=== PATIENT | female | born 1985 | race Caucasian/White ===

== ENCOUNTER 2017-10-04 22:24 | Emergency (ER) | payer OTHER ==
[2017-10-04 22:25] VITALS: O2SAT 100
[2017-10-04] MEDS ORDERED: ONDANSETRON HCL 4 MG/2 ML SOL IV ONE (23:06)
[2017-10-04] MEDS ORDERED: FENTANYL 100MCG/2ML SOL IV ONE (23:07)
[2017-10-04] MEDS ORDERED: PANTOPRAZOLE SODIUM 40 MG/10 ML PDS IV ONE (23:08)
[2017-10-04] MEDS ORDERED: SODIUM CHLORIDE 0.9% 1000 ML SOL IV ONE (23:15)
[2017-10-04] MEDS: SODIUM CHLORIDE 0.9% FLUSH 10 ML SOL IV PRN ×2 (23:30→23:55)
[2017-10-04 23:33] LABS: BASOPHILS % (AUTO) 1 % (0-3); EOSINOPHILS % (AUTO) 8 % (0-9); HEMATOCRIT 36 % (35-47); HEMOGLOBIN 12.3 gm/dl (12.0-15.5); LYMPHOCYTES % (AUTO) 34.7 % (10-50); MEAN CORPUSCULAR HEMOGLOBIN 30.8 pg (27.0-32.0); MEAN CORPUSCULAR HGB CONC 34.6 gm/dl (32.0-36.0); MEAN CORPUSCULAR VOLUME 89 fL (81-99); MONOCYTES % (AUTO) 7.4 % (0-12); NEUTROPHILS % (AUTO) 48.4 % (37-80)
[2017-10-04] MEDS ORDERED: ONDANSETRON HCL 4 MG/2 ML SOL ONE (23:44)
[2017-10-04] MEDS ORDERED: PANTOPRAZOLE SODIUM 40 MG/10 ML PDS ONE (23:44)
[2017-10-04] MEDS ORDERED: FENTANYL 100MCG/2ML SOL ONE (23:44)
[2017-10-04 23:54] LABS: BILIRUBIN,TOTAL 0.4 mg/dl (0.2-1.0); CREATININE 0.63 mg/dl (0.60-1.00); TOTAL PROTEIN 5.9 gm/dl (6.4-8.2)
[2017-10-05 00:04] LABS: POTASSIUM 2.8 mMol/L (3.5-5.1)
[2017-10-05 00:08] LABS: APPEARANCE,URINE Slightly Cloudy; BILIRUBIN,URINE NEGATIVE (NEGATIVE); COLOR,URINE Yellow; GLUCOSE, URINE (UA) NEGATIVE (NEGATIVE); KETONES,URINE NEGATIVE (NEGATIVE); LEUKOCYTE ESTERASE ,URINE NEGATIVE (NEGATIVE); NITRATE,URINE NEGATIVE (NEGATIVE); OCCULT BLOOD,URINE NEGATIVE (NEG-TRACE); PH,URINE 6.5; UROBILINOGEN,URINE 0.2 (0.2-1.0 EU)
[2017-10-05 00:20] LABS: EPITHELIAL CELLS 0-2 (SQUAMOUS); RBC,URINE 0-3 (0-3AV/HPF); WBC,URINE 0-2 (0-5AV/HPF)
[2017-10-05 00:21] LABS: BACTERIA 2+ (< 1+); CRYSTALS 0-4 CA OXALATE (0-3 AVE/HPF)
[2017-10-05] MEDS ORDERED: POTASSIUM CHLORIDE 10 MEQ TER PO ONE (00:24)
[2017-10-05] MEDS ORDERED: POTASSIUM CHLORIDE 10 MEQ TER ONE (00:24)
[2017-10-05 00:44] VITALS: BP 108/80; PULSE 73; RESP 12; TEMP 97
== END 2017-10-05 01:33 | disposition short-term general hospital (02) ==
LOC: ED 22:24
DX: K35.80 Unspecified acute appendicitis (principal)
CPT/HCPCS: 36415; 74177; 80053; 81001; 84703; 85025; 87088; 99285; J2405; J3010; Q9967; A9270-GY

== ENCOUNTER 2017-10-09 23:20 | Emergency (ER) | payer OTHER ==
[2017-10-09 23:20] VITALS: O2SAT 100
[2017-10-09] MEDS ORDERED: ONDANSETRON HCL 4 MG/2 ML 4 MG in SODIUM CHLORIDE 0.9% 100 ML 100 ML IV ONE (23:39)
[2017-10-09] MEDS ORDERED: ONDANSETRON HCL 4 MG/2 ML SOL ONE (23:43)
[2017-10-09] MEDS ORDERED: SODIUM CHLORIDE 0.9% 1000ML 1,000 ML IV SCH (23:45)
[2017-10-09 23:57] VITALS: BP 128/85; PULSE 75; RESP 16; TEMP 97.8
[2017-10-10 00:10] LABS: BASOPHILS % (AUTO) 2 % (0-3); EOSINOPHILS % (AUTO) 3 % (0-9); HEMATOCRIT 39 % (35-47); HEMOGLOBIN 13.3 gm/dl (12.0-15.5); LYMPHOCYTES % (AUTO) 10.8 % (10-50); MEAN CORPUSCULAR HEMOGLOBIN 30.8 pg (27.0-32.0); MEAN CORPUSCULAR HGB CONC 34.3 gm/dl (32.0-36.0); MEAN CORPUSCULAR VOLUME 90 fL (81-99); MONOCYTES % (AUTO) 5.9 % (0-12); NEUTROPHILS % (AUTO) 78.7 % (37-80)
[2017-10-10 00:14] LABS: ALBUMIN 3.4 gm/dl (3.4-5.0); BILIRUBIN,TOTAL 0.2 mg/dl (0.2-1.0); CALCIUM 8.6 mg/dl (8.5-10.1); CARBON DIOXIDE 29.2 mEq/L (21-32); CREATININE 0.8 mg/dl (0.60-1.00); POTASSIUM 3.9 mMol/L (3.5-5.1); TOTAL PROTEIN 6.7 gm/dl (6.4-8.2)
== END 2017-10-10 00:53 | disposition home or self-care (01) ==
LOC: ED 23:20
DX: R11.0 Nausea (principal); Z98.890 Other specified postprocedural states
CPT/HCPCS: 36415; 80053; 85025; 96365; 99282; 99283; J2405